=== PATIENT | male | born 2005 | race Caucasian/White ===

== ENCOUNTER 2025-08-17 19:17 | Emergency (ER) | payer OTHER ==
[~2025-08-17] VITALS: Ht 162.6 cm; Wt 95.0 kg
[2025-08-17 19:21] VITALS: O2SAT 95
[2025-08-17] MEDS ORDERED: IBUP-2030 MT (21:43)
[2025-08-17] MEDS ORDERED: IBUPROFEN 800MG TABLET PO ONE (21:45)
[2025-08-17] MEDS: IBUPROFEN 800MG TABLET PO NR (22:43)
[2025-08-17 23:11] VITALS: BP 129/69; PULSE 77; RESP 13; TEMP 36.7; O2SAT 99
== END 2025-08-17 23:45 | disposition home or self-care (01) ==
LOC: ER 19:17
DX: S82.51XA Displaced fracture of medial malleolus of right tibia, initial encounter for closed fracture (principal); V29.99XA Rider (driver) (passenger) of other motorcycle injured in unspecified traffic accident, initial encounter; Y93.89 Activity, other specified; Y92.410 Unspecified street and highway as the place of occurrence of the external cause; Y99.8 Other external cause status
CPT/HCPCS: 29515; 71045; 73030; 73562; 73610; 99284